=== PATIENT | female | born 1935 | race Caucasian/White ===

== ENCOUNTER 2019-07-03 17:44 | Observation (INO) ==
[2019-07-03] MEDS ORDERED: NS 500 ML IV ONE ×2 (18:19→21:58)
--- NOTE | 2019-07-03 18:19 | PROVIDER DOCUMENTATION ---
HPI-Abdominal Pain/GI Problem - General Chief Complaint: General Adult Stated Complaint: WEAK / FEELS BAD Time Seen by Provider: 07/03/19 18:04 Allergies/Adverse Reactions: Patient Allergies Allergy/AdvReac Type Severity Reaction Status Date / Time Penicillins Allergy Unknown Verified 10/04/17 11:16 Home Medications: Home Medication List Medication Instructions Recorded Confirmed Last Taken Type Amlodipine Besylate 10 mg PO DAILY 10/04/17 07/03/19 10/04/17 History PRAVAstatin [Pravachol] 40 mg PO HS 10/04/17 07/03/19 10/03/17 History - History of Present Illness-ABD Nature of Presenting Problems: 83 YOF PRESENTS WITH C/O GENERALIZED WEAKNESS AFTER 3 DAYS OF N/V/D THAT HAS RESOLVED 2 DAYS AGO BUT SHE REPORTS SHE REMAINS WEAK AND IS CONCERNED ABOUT DEHYDRATION. SHE DENIES SOB, CP, FEVER, CHILLS AND ABDOMINAL PAIN. Abdominal Pain Onset Location: denies: RUQ, LUQ, RLQ, LLQ, epigastric, periumbilical, suprapubic, generalized abdomen, flank, unknown, other Pain Radiation: reports: no radiation Quality of Pain: reports: none Onset/Duration: reports: 5 days ago Timing: reports: still present Activities at Onset: reports: none Exposure to sick contacts?: No Modifying Factors: improves with: nothing Associated Symptoms: reports: diarrhea (RESOLVED 2 DAYS AGO), nausea (RESOLVED 2 DAYS AGO), vomiting (RESOLVED 2 DAYS AGO), weakness Last BM: this morning Dark Stools Present?: reports: none noticed Rectal Bleeding: reports: none Rectal Pain: reports: none Emesis Description: reports: none Bruising or Bleeding Gums?: No Similar Symptoms Previously?: No Recently seen or treated by another doctor?: No Review of Systems - Adult - REVIEW OF SYSTEMS - ADULT Constitutional: reports: no symptoms reported. denies: see HPI, chills, fever, fatique, night sweats, weight gain, weight loss, other Eyes: reports: no symptoms reported. denies: see HPI, discharge, dry eyes, decreased vision, blurred vision, double vision, eye pain, redness, other Ears, Nose, Mouth & Throat: reports: no symptoms reported. denies: see HPI, ear discharge, ear pain, hearing loss, tinnitus, epistaxis, sinus problem, nose pain, loose teeth, mouth/dental pain, mouth swelling, hoarseness, throat pain, throat swelling, other Cardiovascular: reports: no symptoms reported. denies: see HPI, chest pain, edema, heart murmur, irregular heart rate, orthopnea, palpitations, poor circulation, PND, syncope, other Respiratory: reports: no symptoms reported. denies: see HPI, chronic cough, cough, dyspnea on exertion, excessive sputum production, hemoptysis, pleurisy, shortness of breath, wheezing, other Gastrointestinal: reports: see HPI Genitourinary: reports: no symptoms reported. denies: see HPI, dysuria, discharge, frequency, flank pain, frequent UTI's, hematuria, hesitency, incontinence, urinary retention, urgency, other Musculoskeletal: reports: see HPI, muscle weakness. denies: no symptoms reported, bone pain, back pain, frequent leg cramps, joint pain, joint swelling, muscle aches, neck pain, other Integumentary: reports: no symptoms reported. denies: see HPI, hives, hair loss, itching, mole changes, nail changes, rash, skin sores/ulcer, skin thickening, other Neurological: reports: no symptoms reported. denies: see HPI, ataxia, dizziness/vertigo, headache/migraines, loss of balance, numbness, paresthesia, seizure, slurred speech, syncope, tremors, other Psychiatric: reports: no symptoms reported. denies: see HPI, anxiety, anti- depressant use, alcohol/drug dependence, depression, emotional problems, insomnia, panic attacks, suicidal thoughts, other Endocrine: reports: no symptoms reported. denies: see HPI, change in skin pigment, excessive sweating, goiter, cold intolerance, heat intolerance, increased hunger, increased thirst, polyuria, other Hematologic/Lymphatic: reports: no symptoms reported. denies: see HPI, blood clots, easy bruising, low blood count, lymphedema, prolonged bleeding, swollen lymph nodes, transfusions, other Allergic/Immunologic: reports: no symptoms reported. denies: see HPI, allergic reactions, allergic rhinitis, asthma, eczema, food allergy, frequent infections, hay fever, hives, positive PPD, urticaria, other Past History - Adult - PAST MEDICAL HISTORY-ADULT Review of Records: reports: Nursing Assessment Review, Social history reviewed & non-contributory. Physical Exam-General - PHYSICAL EXAM-ADULT Initial Vital Signs Reviewed: Yes - CONSTITUTIONAL General Appearance: appears well, alert, no apparent distress - EYES Eyes: PERRL/EOMI - HEAD, EARS, NOSE, MOUTH & THROAT HENMT: normocephalic/atraumatic, moist mucous membranes, normal ENT inspection - NECK Neck: non-tender, full range of motion, supple - RESPIRATORY Respiratory: chest non-tender, lungs clear, normal breath sounds, no pleuratic chest pain, no respiratory distress, no accessory muscle use - CARDIOVASCULAR Cardiovascular: normal peripheral pulses, regular rate, rhythm - GASTROINTESTINAL (ABDOMEN) Abdominal Exam: normal bowel sounds, non tender, soft - LYMPHATIC Lymphatic: no adenopathy - MUSCULOSKELETAL Back Exam: normal inspection Extremity: normal range of motion, non-tender, normal gait - SKIN Integumentary: normal color, normal turgor, warm/dry - NEUROLOGIC Neurologic: grossly normal - PSYCHIATRIC Psych/Mental Status: normal mood/affect, oriented x 3 Progress - PLAN OF CARE/RESULTS Progress/Plan/Lab Results: Vital Signs - 8 hr 07/03/19 17:49 Temperature 98 F Pulse Rate 76 Respiratory Rate 18 Blood Pressure 152/58 O2 Sat by Pulse Oximetry 97 Orders Category Date Time Status Saline Loc DIRECTED Care 07/03/19 17:56 Active NPO Diet 07/03/19 17:56 Active AMYLASE [CHEM] Stat Lab 07/03/19 17:56 Ordered CBC WITH ELECTRONIC DIFF [HEME] Stat Lab 07/03/19 17:56 Ordered COMPREHENSIVE METABOLIC PANEL [CHEM] Stat Lab 07/03/19 17:56 Uncollected LIPASE [CHEM] Stat Lab 07/03/19 17:[address] W/POSS RFLX CULT [URINALYSIS] Stat Lab 07/03/19 17:56 Uncollected Result Diagrams: 07/03/19 18:25 07/03/19 18:25 - CONSULTS/PCP/HOSPITALIST Notification #1 *Consult/PCP/Hospitalist*: DR BLANCHARD Time Discussed: 19:53 Consult Disposition: Admit Departure - Departure Date of Disposition Decision: 07/03/19 Time of Disposition Decision: 19:53 DIAGNOSIS: Symptomatic anemia, DOMINGO (acute kidney injury), Dehydration Disposition: ADMITTED INPATIENT 09 Certified Medical Emergency: Emergent Condition: Stable - Critical Care Note This patient required my direct & personal management of CC.: No Attestation - Physician/ JEAN CARLOS Attestation Patient care was provided by Advanced Practice Provider:: Yes Advanced Practice Provider:: Sheyla Sullivan Advanced Practice Provider documentation review:: The Mid-level provider documentation, treatment plan and medical decision making was reviewed by the physician who agrees with all treatment and medical decision making by the MLP. The physician spent face to face time with patient:: No Advanced Practice Provider documentation review:: Supervising physician onsite and consulted in the evaluation and care of this patient. The physician did not have a face to face encounter with the patient.
[2019-07-03 18:55] LABS: BASO# 0.05 X1000 (0.0-0.2); BASO% 0.5 % (0.0-0.8); EOS# 0.27 X1000 (0.0-0.7); EOS% 2.5 % (0.0-10.0); HEMOGLOBIN 7.6 g/dL (12.0-16.0); IMM GRAN# 0.01 X1000 (0.0-0.04); IMM GRAN% 0.1 % (0.0-0.5); LYMPH# 1.58 X1000 (1.2-3.4); LYMPH% 14.4 % (20.5-51.1); MCH 21.8 PG (27-31); MCHC 29.2 g/dL (33-37); MCV 74.7 FL (81-99); MONO# 0.99 X1000 (0.11-0.59); MPV 10.4 FL (7.4-10.4); NEUT# 8.05 X1000 (1.4-6.5); NEUT% 73.5 % (42.2-75.2); PLT 420 X1000 (130-400); RBC 3.48 XMIL (4.2-5.4); RDW 16.3 % (11.5-14.5); WBC 10.95 X1000 (4.8-10.8)
[2019-07-03 19:05] LABS: ALBUMIN 3.4 g/dL (3.5-5.0); CREATININE 1.9 mg/dL (0.5-0.9); POTASSIUM 4.4 mmol/L (3.5-5.1); TOTAL BILIRUBIN 0.2 mg/dL (0.20-1.00); TOTAL PROTEIN 7.1 g/dL (6.3-8.3)
[2019-07-03 19:46] LABS: OCCULT BLOOD 1 NEGATIVE (NEGATIVE)
[2019-07-03] MEDS ORDERED: NS 1,000 ML IV ONE (19:54)
[2019-07-03 20:51] LABS: BILIRUBIN URINE NEGATIVE (NEGATIVE); BLOOD URINE 1+ (NEGATIVE); CLARITY HAZY (CLEAR); COLOR YELLOW; GLUCOSE URINE NEGATIVE (NEGATIVE); KETONE URINE NEGATIVE (NEGATIVE); LEUKOCYTES URINE 2+ (NEGATIVE); NITRITE URINE NEGATIVE (NEGATIVE); PROTEIN URINE NEGATIVE (NEGATIVE); UROBILINOGEN URINE NORMAL
[2019-07-03 20:53] LABS: URINE WBC TNTC /HPF (<10)
[2019-07-03 20:55] LABS: URINE BACTERIA 4+ /HFP; URINE CAST NONE SEEN /LPF; URINE CRYSTAL NONE SEEN /HPF; URINE RBC <10 /HPF (<10); URINE SOURCE CLEAN CATCH; URINE YEAST NONE SEEN /HPF
[2019-07-03 20:56] LABS: URINE EPITHELIAL CELLS <10 /HPF (<10); URINE SMALL ROUND CELLS TRANSITIONAL PRESENT
[2019-07-04] MEDS ORDERED: LEVAQUIN PO SCH (09:00)
[2019-07-04 09:24] LABS: HEMATOCRIT 28.3 % (37.0-47.0); HEMOGLOBIN 8.6 g/dL (12.0-16.0); MCH 23.2 PG (27-31); MCHC 30.4 g/dL (33-37); MCV 76.3 FL (81-99); MPV 9.8 FL (7.4-10.4); RBC 3.71 XMIL (4.2-5.4); RDW 16.5 % (11.5-14.5); WBC 9.06 X1000 (4.8-10.8)
[2019-07-04 10:05] LABS: CREATININE 1.5 mg/dL (0.5-0.9); POTASSIUM 4.6 mmol/L (3.5-5.1)
[2019-07-04 10:06] LABS: ALBUMIN 3.1 g/dL (3.5-5.0); MAGNESIUM 1.9 mg/dL (1.5-2.7); TOTAL BILIRUBIN 0.8 mg/dL (0.20-1.00); TOTAL PROTEIN 6.5 g/dL (6.3-8.3)
[2019-07-04 15:11] LABS: IRON SATURATION 69 %; TIBC 157 ug/dL; TOTAL IRON 109 ug/dL (49-151); UNBOUND IRON 48 ug/dL (112-346)
[2019-07-04 15:48] VITALS: BP 150/65
--- NOTE | 2019-07-04 15:58 | HISTORY AND PHYSICAL ---
ADDENDUM: Patient is a very pleasant, elderly female who is awake, alert, and oriented. She presented to the hospital with generalized weakness and some nausea. She has had decreased oral intake for the past few days. Upon evaluation in the ER she was noted to have hemoglobin and hematocrit low at 7 and 22.6. She also had an elevated serum creatinine. It is likely that she may have a urinary tract infection as well. She has been given one unit transfusion in the ER. We are going to give her some IV fluids and reevaluate her course. cc: Fermin Gilliland MD
--- NOTE | 2019-07-04 15:58 | DISCHARGE SUMMARY ---
ADMISSION DATE: 07/03/2019 DISCHARGE DATE: 07/04/2019 DISCHARGE DIAGNOSES: 1. Acute on chronic renal failure, improved. 2. Anemia of chronic disease, improved after 1 unit of transfusion. 3. Generalized weakness, improved. The patient is able to ambulate. 4. Advanced age. 5. Hypertension. 6. High cholesterol. CONSULTATIONS: None. PROCEDURES: None. BRIEF HOSPITAL COURSE: The patient is an 83-year-old female who presented to the hospital and was treated in the usual fashion. She was given 1 unit of transfusion in the E.R. She was placed on antibiotics due to a presumed urinary tract infection. I gave her IV fluids. Upon recheck her creatinine has improved. She notes that she is feeling much better and is asking to go home. She is able to ambulate without any assistance. DISPOSITION: The patient will be discharged home. She will follow up as an outpatient with her treatment facility of choice. She was advised that she needs to have her labs rechecked in a week or two to reevaluate her anemia. TIME SPENT: Greater than 30 minutes was spent in total care. cc: Fermin Gilliland MD
--- NOTE | 2019-07-04 18:18 | HISTORY AND PHYSICAL ---
CHIEF COMPLAINT: Generalized weakness, nausea, vomiting, and diarrhea. HISTORY OF PRESENT ILLNESS: This is an 83-year-old female who presented to the emergency room complaining of generalized weakness. She states for 3 days prior she had nausea, vomiting, and diarrhea. This did resolve about 24 hours prior, but she is still weak and is concerned about dehydration. She denied any black or bloody vomitus or stools, any chest pain, any palpitations or any abdominal pain. PAST MEDICAL HISTORY: Hypertension. PAST SURGICAL HISTORY: Cholecystectomy, hysterectomy. SOCIAL HISTORY: She denies alcohol, tobacco, or illicit drug use. ALLERGIES: Penicillin with unknown reaction. HOME MEDICATIONS: A list will be obtained by the nursing staff and once verified, we will review and restart it as appropriate. REVIEW OF SYSTEMS: Discussed with the patient with pertinent positives stated in the HPI. She denied any syncope, dizziness, chest pain, palpitations, shortness of breath, cough, any fevers, chills, any abdominal pain, any constipation, black or bloody vomitus or stools, hematuria, dysuria, frequency, urgency. PHYSICAL EXAMINATION: GENERAL: This is a very pleasant 83-year-old female who is sitting up in the bed in no distress. VITAL SIGNS: Blood pressure is 143/67 with a heart rate of 71, respirations 20, temperature 97.4 degrees with room air saturations 98%. HEENT: Head is normocephalic, atraumatic. Mucous membranes are moist. NECK: Supple with trachea midline. CARDIOVASCULAR: Regular rate and rhythm. S1 and S2 appreciated. She has no lower extremity edema. Calves are nontender with peripheral pulses palpable x4 extremities. PULMONARY: Breath sounds are clear with no increased work of breathing noted. Chest rises and falls symmetrically with respiration. Chest wall is nontender to palpation. GASTROINTESTINAL: Abdomen is soft, nontender, nondistended with bowel sounds in all 4 quadrants. GENITOURINARY: She has no CVA or suprapubic tenderness. NEUROLOGIC: Alert and oriented x3. SKIN: Warm and dry. LABORATORY DATA: WBC is 10.9 with hemoglobin 7.6, hematocrit 26, platelets of 420,000. Sodium 140, potassium 4.4, BUN 27, creatinine 1.9 and glucose of 152. Urinalysis revealed less than 10 microscopic red blood cells, too numerous to count microscopic white blood cells and less than 10 epithelial cells. Stool for occult blood was negative. Urine culture is pending. ASSESSMENT AND PLAN: 1. Nausea, vomiting, and diarrhea, resolved. 2. Symptomatic anemia. The patient was given a unit of packed cells in the emergency room. We will check a CBC this morning and treat accordingly. 3. Dehydration. She received hydration in the emergency room. She has a good oral intake. We will monitor. 4. Possible urinary tract infection. We will use Levaquin. 5. Hypertension. We will identify her home medication and continue. 6. High cholesterol. We will continue her home medication. 7. iron studies. Plan discussed with Dr Clay Further treatments pending hospital course. Dictated by JANINA Ibarra for Fermin Gilliland MD cc: JANINA Ibarra MD MTDD
--- NOTE | 2019-07-05 13:45 | PROGRESS NOTE ---
DATE: 07/05/2019 Ms. Mason had a urine culture collected on 07/03/2019 and it resulted today 07/05/2019 as no pathogenic growth. This was called to Ms. Mason's daughter, Doreen. They were instructed that she did not need to take antibiotics. Dictated by JANINA Ibarra for Fermin Gilliland MD cc: JANINA Ibarra MD
== END 2019-07-04 16:00 | disposition home or self-care (01) ==
LOC: P.ED 17:44 → INTOOBSV 21:35 → P.MEDSURG 21:35
PROVIDERS: ATTEND Family Medicine